=== PATIENT | female | born 1995 | race Caucasian/White ===

== ENCOUNTER 2018-11-24 15:23 | Emergency (ER) | payer OTHER ==
[~2018-11-24] VITALS: Ht 160 cm; Wt 113.0 kg
[~2018-11-24 15:23] MED LIST: CELEXA10 MG PO; COLACE100 MG PO; ENEMA READY TO135 M1 RC; HAIR SKIN NAIL1 EACH PO; HYDROCODONE-AP1 EAC6 PO; IBUPROFEN 800800 M1 PO; KURVELO1 EACH PO; MEDROLDOSEPACK PO; NAPROSYN500 MG PO; TRAMADOL 50 MG50 MG PO; UNICOMPLEX M TA1 TA1 PO; ZOLOFT 50 MG TA50 MG PO
[2018-11-24 15:46] LABS: URINE BILIRUBIN NEGATIVE (Negative); URINE BLOOD NEGATIVE (Negative); URINE CLARITY CLEAR; URINE COLOR YELLOW; URINE GLUCOSE-RANDOM NEGATIVE (Negative); URINE KETONES 2+ (Negative); URINE LEUKOCYTES-REFLEX NEGATIVE (Negative); URINE NITRITE-REFLEX NEGATIVE (Negative); URINE PROTEIN NEGATIVE (Negative); URINE SPECIFIC GRAVITY 1.015 (1.005-1.030); URINE UROBILINOGEN 0.2 E.U./dl (0.2-1.0)
[2018-11-24] MEDS ORDERED: PRENA1 CHEW TA1.4 MG PO (15:54)
[2018-11-24] MEDS ORDERED: PHENERGAN 25 MG25 M1 PO (15:54)
[2018-11-24 16:51] VITALS: BP 107/72
== END 2018-11-24 16:52 | disposition home or self-care (01) ==
LOC: M.ERS 15:23
PROVIDERS: Nurse Practitioner Psychiatric/Mental Health
DX: O26.891 Other specified pregnancy related conditions, first trimester (principal); R11.0 Nausea; R42 Dizziness and giddiness; Z88.6 Allergy status to analgesic agent; Z91.018 Allergy to other foods; Z3A.01 Less than 8 weeks gestation of pregnancy

== ENCOUNTER 2021-02-15 17:47 | Emergency (ER) | payer OTHER ==
[~2021-02-15] VITALS: Ht 160 cm; Wt 108.9 kg
[~2021-02-15 17:47] MED LIST changes: +PHENERGAN 25 MG25 M1 PO; +PRENA1 CHEW TA1.4 MG PO
[2021-02-15 18:09] LABS: URINE BILIRUBIN NEGATIVE (Negative); URINE BLOOD TRACE (Negative); URINE CLARITY SL CLOUDY; URINE COLOR YELLOW; URINE GLUCOSE-RANDOM NEGATIVE (Negative); URINE KETONES NEGATIVE (Negative); URINE LEUKOCYTES NEGATIVE (Negative); URINE NITRITE NEGATIVE (Negative); URINE PROTEIN NEGATIVE (Negative); URINE UROBILINOGEN 0.2 E.U./dl (0.2-1.0)
[2021-02-15 18:22] LABS: MUCUS None Seen strn/LPF (None Seen); SQUAMOUS >10 Many /LPF (0-3)
[2021-02-15 18:23] LABS: AMORPHOUS PHOSPHATES Many /LPF (None Seen); BACTERIA 1-9 Few /HPF (None Seen); CASTS None Seen /LPF (None Seen); URINE RBC None Seen /HPF (0-2); URINE WBC 0-5 Rare /HPF (0-5)
[2021-02-15 19:45] VITALS: BP 143/74
== END 2021-02-15 19:45 | disposition home or self-care (01) ==
LOC: M.ERS 17:47
PROVIDERS: Emergency Medicine
DX: O62.9 Abnormality of forces of labor, unspecified (principal); Z3A.01 Less than 8 weeks gestation of pregnancy; Z88.2 Allergy status to sulfonamides